=== PATIENT | female | born 2000 | race Asian ===

== ENCOUNTER 2020-11-09 21:52 | Emergency (ER) | payer OTHER ==
[~2020-11-09] VITALS: Ht 165.1 cm; Wt 60.5 kg
[2020-11-09 21:57] VITALS: TEMP 98.6
[2020-11-10] MEDS ORDERED: PREDNISONE20 MG PO (01:07)
[2020-11-10] MEDS ORDERED: ATARAX 25MG25 MG/TAB PO (01:07)
[2020-11-10] MEDS ORDERED: EPIPEN 2-PAK1 MG/ML IM (01:08)
[2020-11-10 02:06] VITALS: BP 106/66; PULSE 82
== END 2020-11-10 02:10 | disposition home or self-care (01) ==
LOC: COL.ER 21:52
DX: T78.1XXA Other adverse food reactions, not elsewhere classified, initial encounter (principal)
CPT/HCPCS: J0171; J1200; J2405; J2930